=== PATIENT | male | born 2000 | race African-American/Black ===

== ENCOUNTER 2021-06-10 11:24 | Emergency (ER) | payer SELFPAY ==
[~2021-06-10 11:24] MED LIST: Iopamidol-370 76% 500 ML 1 ML ONE
[2021-06-10] MEDS ORDERED: Boostrix 0.5 ML (Tdap) VIAL ONE (11:33)
[2021-06-10] MEDS ORDERED: CEFAZOLIN 1 GM VIAL ONE (11:35)
[2021-06-10 11:48] LABS: #Basophils 0.1 thou/uL (0.0-0.2); #Lymphocytes 2.9 thou/uL (1.20-3.40); #Monocytes 0.9 thou/uL (0.11-0.59); #Neutrophils 8.3 thou/uL (1.40-6.50); %Basophils 0.4 % (0.0-1.0); %Eosinophils 0.4 % (0.0-10.0); %Monocytes 7.2 % (0.0-4.0); Hemoglobin 15.5 g/dL (14.0-18.0); Mean Corpuscular HGB CONC 32.7 g/dL (32.0-36.0); Mean Corpuscular Hemoglobin 28.6 pg (25.0-35.0); Mean Corpuscular Volume 87.6 fL (78.0-98.0); Mean Platelet Volume 6.8 fL (7.4-10.4); Platelet Count 322 thou/uL (130-400); RBC Distribution Width 12.5 % (11.5-14.5); Red Blood Cell (RBC) Count 5.41 mill/uL (4.00-5.20); White Blood Cell (WBC) Count 12.2 thou/uL (4.8-10.8)
[2021-06-10 11:58] LABS: PTT 26.5 sec (22.9-36.1)
[2021-06-10 11:59] LABS: Prothrombin Time 13.3 sec (12.0-14.7)
[2021-06-10 12:14] LABS: ALT (SGPT) 17 U/L (8-55); AST (SGOT) 15 U/L (5-34); Albumin 4.7 g/dL (3.5-5.0); Alkaline Phosphatase 58 U/L (50-130); Anion Gap 9 mmol/L (10-20); BUN (Urea Nitrogen) 16 mg/dL (8.9-20.6); Bilirubin, Total 0.4 mg/dL (0.2-1.2); Calc. Creatinine Clearance 0 mL/min (70-130); Calcium 9.4 mg/dL (7.8-10.44); Carbon Dioxide 26 mmol/L (22-29); Chloride 105 mmol/L (98-107); Globulin 3.8 g/dL (2.4-3.5); Glucose 86 mg/dL (70-105); Potassium 4.3 mmol/L (3.5-5.1); Protein, Total 8.5 g/dL (6.0-8.3); Sodium 136 mmol/L (136-145)
[2021-06-10 12:26] LABS: Alcohol Less than 10 mg/dL (Less than 10)
== END 2021-06-10 12:59 | disposition home or self-care (01) ==
LOC: EEVIPCON 11:24 → ERS 11:24
DX: S31.139A Puncture wound of abdominal wall without foreign body, unspecified quadrant without penetration into peritoneal cavity, initial encounter (principal); Z23 Encounter for immunization; W34.00XA Accidental discharge from unspecified firearms or gun, initial encounter
CPT/HCPCS: 36415; 71045; 71260; 74177; 80053; 80307; 83605; 85025; 85610; 85730; 86850; 86900; 86901; 90471; 90715; 93005; 96365; J0690